=== PATIENT | male | born 2005 | race Caucasian/White ===

== ENCOUNTER 2025-02-15 08:30 | Outpatient (CLI) | payer BC | END 2025-02-15 08:31 | disposition home or self-care (01) | LOC: CSHSLEEP 08:30 | PROVIDERS: ATTEND Registered Nurse | DX: G47.33 Obstructive sleep apnea (adult) (pediatric) (principal); E66.9 Obesity, unspecified; Z68.41 Body mass index [BMI] 40.0-44.9, adult; R06.83 Snoring; I10 Essential (primary) hypertension | CPT/HCPCS: 95811 ==